=== PATIENT | female | born 1960 | race Two or more races ===

== ENCOUNTER 2022-12-15 07:46 | Outpatient (CLI) | payer OTHER | END 2022-12-15 07:55 | disposition home or self-care (01) | LOC: SONOGRAMA 07:46 | PROVIDERS: ATTEND Obstetrics & Gynecology | DX: R10.2 Pelvic and perineal pain (principal) ==

== ENCOUNTER 2023-04-18 13:04 | Outpatient (CLI) | payer OTHER ==
[2023-04-18 13:44] LABS: HEMOGLOBIN 13.4 g/dL (12.0-15.00); MEAN CELL VOLUME 88.4 fL (80.00-100.00); MEAN CORPUSCULAR HEMOGLOBIN 30.3 pg (27.00-32.0); MEAN CORPUSCULAR HGB CONC 34.3 g/dl (32.0-36.0); PLATELET COUNT 134 K/uL (150-450); RED BLOOD COUNT 4.42 M/uL (4.00-6.00)
[2023-04-18 14:11] LABS: MYCOPLASMA PNEUMONIAE IGM NON REACTIVE (NO REACTIVE)
== END 2023-04-18 13:05 | disposition home or self-care (01) ==
LOC: LAB 13:04
DX: B34.9 Viral infection, unspecified (principal); J10.1 Influenza due to other identified influenza virus with other respiratory manifestations; J15.7 Pneumonia due to Mycoplasma pneumoniae; U07.1 COVID-19

== ENCOUNTER 2023-08-31 08:43 | Outpatient (CLI) | payer OTHER ==
[2023-08-31 09:28] LABS: MEAN CELL VOLUME 88.2 fL (80.00-100.00); MEAN CORPUSCULAR HEMOGLOBIN 30.1 pg (27.00-32.0); MEAN CORPUSCULAR HGB CONC 34.1 g/dl (32.0-36.0); PLATELET COUNT 222 K/uL (150-450); RED BLOOD COUNT 4.31 M/uL (4.00-6.00); RED CELL DISTRIBUTION WIDTH 12.1 % (11.5-14.5)
[2023-08-31 09:49] LABS: PH,URINE 6.5 (5.0-8.0); URINE APPEARANCE Clear; URINE BILIRRUBIN Negative (NEGATIVE); URINE BLOOD Small; URINE COLOR Yellow; URINE GLUCOSE Negative (NEGATIVE); URINE LEUKOCYTE Negative; URINE NITRATE Negative; URINE PROTEIN Negative (NEGATIVE); URINE UROBILINOGEN 0.2 E.U./dl
[2023-08-31 09:53] LABS: URINE EPITHELIAL CELLS 2.4 uL (0.0-38.8); URINE RBC 98.7 uL (0.0-20.8); URINE WBC 1.9 uL (0.0-23.2)
[2023-08-31 09:58] LABS: URINE BACTERIA 1.2 uL (0.0-1933)
[2023-08-31 10:35] LABS: ALBUMIN 4.1 gm/dL (3.4-5.0); BILIRUBIN TOTAL 1.13 mg/dL (0.3-1.2); CALCIUM 9.2 mg/dL (8.5-10.1); CHOL HDL RATIO 4.4 (0-5.0); CREATININE SERUM 0.64 mg/dL (0.55-1.02); GFR 94.65; GLOBULINA 3.6 G/DL (2.4-3.5); POTASSIUM 4.49 mEq/L (3.5-5.1); TOTAL PROTEIN 7.7 gm/dL (6.4-8.2); TSH 1.03 uIU/mL (0.358-3.74)
[2023-08-31 11:05] LABS: VITAMIN D3 25 HYDROXY 26.05 ng/ml (30-120)
== END 2023-08-31 08:51 | disposition home or self-care (01) ==
LOC: LAB 08:43
DX: D64.9 Anemia, unspecified (principal); E55.9 Vitamin D deficiency, unspecified; E04.1 Nontoxic single thyroid nodule; E78.00 Pure hypercholesterolemia, unspecified; A51.9 Early syphilis, unspecified

== ENCOUNTER 2023-08-31 09:08 | Outpatient (CLI) | payer OTHER | END 2023-08-31 09:34 | disposition home or self-care (01) | LOC: MAMO-SONO 09:08 | PROVIDERS: ATTEND General Practice | DX: N60.21 Fibroadenosis of right breast (principal); N60.22 Fibroadenosis of left breast; M54.50 Low back pain, unspecified ==

== ENCOUNTER 2023-09-02 10:49 | Emergency (ER) | payer OTHER ==
[~2023-09-02] VITALS: Ht 160 cm; Wt 54.4 kg
[2023-09-02] MEDS ORDERED: KETOROLAC TROMETHAMINE 60 MG VIAL IM STA (12:15)
[2023-09-02] MEDS ORDERED: KETOROLAC TROMETHAMINE 60 MG VIAL IM ONE (12:17)
== END 2023-09-02 13:21 | disposition home or self-care (01) ==
LOC: ER 10:51
DX: M54.50 Low back pain, unspecified (principal); Z88.0 Allergy status to penicillin; Z91.013 Allergy to seafood; G57.00 Lesion of sciatic nerve, unspecified lower limb

== ENCOUNTER 2023-09-09 07:45 | Outpatient (CLI) | payer OTHER | END 2023-09-09 07:53 | disposition home or self-care (01) | LOC: SONOGRAMA 07:45 | PROVIDERS: ATTEND General Practice | DX: R10.816 Epigastric abdominal tenderness (principal); R31.9 Hematuria, unspecified ==

== ENCOUNTER → 2024-05-25 08:03 | Outpatient (CLI) | payer OTHER ==
[2024-05-25 08:44] LABS: PH,URINE 5.5 (5.0-8.0); URINE APPEARANCE Clear; URINE BILIRRUBIN Negative (NEGATIVE); URINE BLOOD Moderate; URINE COLOR Yellow; URINE GLUCOSE Negative (NEGATIVE); URINE KETONE Negative (NEGATIVE); URINE LEUKOCYTE Negative; URINE NITRATE Negative; URINE PROTEIN Negative (NEGATIVE); URINE UROBILINOGEN 0.2 E.U./dl
[2024-05-25 08:45] LABS: URINE BACTERIA 6.1 uL (0.0-1933); URINE EPITHELIAL CELLS 2.5 uL (0.0-38.8); URINE RBC 43.5 uL (0.0-20.8); URINE WBC 2.6 uL (0.0-23.2)
[2024-05-25 09:15] LABS: HEMATOCRIT 37.7 % (36.0-45.00); HEMOGLOBIN 12.9 g/dL (12.0-15.00); MEAN CELL VOLUME 88.4 fL (80.00-100.00); MEAN CORPUSCULAR HEMOGLOBIN 30.2 pg (27.00-32.0); MEAN CORPUSCULAR HGB CONC 34.2 g/dl (32.0-36.0); PLATELET COUNT 168 K/uL (150-450); RED BLOOD COUNT 4.27 M/uL (4.00-6.00); RED CELL DISTRIBUTION WIDTH 12.4 % (11.5-14.5)
[2024-05-25 10:00] LABS: BILIRUBIN TOTAL 1.11 mg/dL (0.3-1.2); CALCIUM 8.9 mg/dL (8.5-10.1); CHOL HDL RATIO 5.1 (0-5.0); CREATININE SERUM 0.61 mg/dL (0.55-1.02); GFR 99.71; GLOBULINA 3.1 G/DL (2.4-3.5); POTASSIUM 4.17 mEq/L (3.5-5.1); TOTAL PROTEIN 7.1 gm/dL (6.4-8.2)
== END | disposition home or self-care (01) ==
LOC: LAB 08:03
PROVIDERS: ATTEND General Practice
DX: E78.00 Pure hypercholesterolemia, unspecified (principal); D64.9 Anemia, unspecified; N39.0 Urinary tract infection, site not specified

== ENCOUNTER 2024-05-25 08:56 | Outpatient (CLI) | payer OTHER | END 2024-05-25 09:07 | disposition home or self-care (01) | LOC: MRI 08:56 | PROVIDERS: ATTEND General Practice | DX: M25.571 Pain in right ankle and joints of right foot (principal) | CPT/HCPCS: 73718 ==

== ENCOUNTER 2024-12-15 07:37 | Outpatient (CLI) | payer OTHER ==
[2024-12-15 09:14] LABS: URINE APPEARANCE Clear; URINE BILIRRUBIN Negative (NEGATIVE); URINE BLOOD Small; URINE COLOR Yellow; URINE GLUCOSE Negative (NEGATIVE); URINE KETONE Negative (NEGATIVE); URINE LEUKOCYTE Negative; URINE NITRATE Negative; URINE PROTEIN Negative (NEGATIVE); URINE UROBILINOGEN 0.2 E.U./dl
[2024-12-15 09:21] LABS: URINE EPITHELIAL CELLS 1.9 uL (0.0-38.8); URINE RBC 48.2 uL (0.0-20.8)
[2024-12-15 09:25] LABS: URINE BACTERIA 2.3 uL (0.0-1933); URINE CAST 0.00 uL (0.0-1.40); URINE WBC 0.3 uL (0.0-23.2)
[2024-12-15 09:29] LABS: ob POSITIVE (NEGATIVE)
[2024-12-15 09:31] LABS: CREATININE URINE RANDOM 46.5 MG/DL (30-125)
[2024-12-15 10:05] LABS: ALT/SGPT 37.0 U/L (12-78); AST/SGOT 23.0 U/L (15-37); BILIRUBIN TOTAL 1.48 mg/dL (0.3-1.2); BUN CREA RATIO 19.0 (7.0-25.0); CREATININE SERUM 0.54 mg/dL (0.55-1.02); FREE TRIODOTIRONINE 2.89 pg/ml (2.18-3.98); GFR 114.77; GLOBULINA 3.5 G/DL (2.4-3.5); GLUCOSE FASTING 90.0 mg/dL (65-100); OSMOLALITY SERUM 280.0 MOSM/KG (275-295); T4 TOTAL 5.6 UG/DL (4.8-13.9); TSH 1.17 uIU/mL (0.358-3.74)
[2024-12-15 14:38] LABS: VITAMIN D3 25 HYDROXY 25.09 ng/ml (30-120)
== END 2024-12-15 07:45 | disposition home or self-care (01) ==
LOC: LAB 07:37
PROVIDERS: ATTEND General Practice
DX: D64.9 Anemia, unspecified (principal); N39.0 Urinary tract infection, site not specified; R10.20 Pelvic and perineal pain unspecified side; R10.9 Unspecified abdominal pain; K76.89 Other specified diseases of liver; E78.5 Hyperlipidemia, unspecified; E03.9 Hypothyroidism, unspecified; E55.9 Vitamin D deficiency, unspecified; D51.9 Vitamin B12 deficiency anemia, unspecified; N18.1 Chronic kidney disease, stage 1; Z12.11 Encounter for screening for malignant neoplasm of colon; R73.9 Hyperglycemia, unspecified; Z12.12 Encounter for screening for malignant neoplasm of rectum; K92.1 Melena

== ENCOUNTER 2024-12-20 08:18 | Outpatient (CLI) | payer OTHER | END 2024-12-20 08:20 | disposition home or self-care (01) | LOC: MAMO-SONO 08:18 | PROVIDERS: ATTEND General Practice | DX: N64.4 Mastodynia (principal); Z12.31 Encounter for screening mammogram for malignant neoplasm of breast ==

== ENCOUNTER 2024-12-20 10:33 | Outpatient (CLI) | payer OTHER ==
[2024-12-22] MEDS ORDERED: PANTOPRAZOLE SO40 M2 PO (20:50)
[2024-12-22] MEDS ORDERED: VERIPRED 220 MG/5 ML PO (20:50)
== END 2024-12-20 10:36 | disposition home or self-care (01) ==
LOC: NUCLEAR 10:33
PROVIDERS: ATTEND General Practice
DX: M85.80 Other specified disorders of bone density and structure, unspecified site (principal); M81.0 Age-related osteoporosis without current pathological fracture

== ENCOUNTER → 2024-12-22 | Emergency (ER) | payer OTHER ==
[~2024-12-22] VITALS: Ht 154.9 cm; Wt 49.0 kg
[~2024-12-22] MED LIST: PANTOPRAZOLE SO40 M2 PO; VERIPRED 220 MG/5 ML PO
== END | disposition left against medical advice (07) ==
LOC: ER 20:33
DX: Z53.21 Procedure and treatment not carried out due to patient leaving prior to being seen by health care provider (principal)